=== PATIENT | male | born 1955 ===

== ENCOUNTER 2017-12-05 10:14 | Emergency (ER) | payer OTHER ==
[2017-12-05 10:44] VITALS: O2SAT 99
--- NOTE | 2017-12-05 10:50 | C.PDOC ---
History Of Present Illness 62 ashtyn old male presents to the emergency department with complaints of recurrent urinary retention persisting since last night. Patient reports that the last time he experienced similar symptoms was in 2012. He reports that he gets periodic checks on his PSA, and that he has been taking some unknown prostate medications. He reports that he has a urologist located in [place]. Time Seen by Provider: 12/05/17 10:26 Chief Complaint (Nursing): Male Genitourinary History Per: Patient History/Exam Limitations: no limitations Onset/Duration Of Symptoms: Days (1) Current Symptoms Are (Timing): Still Present Associated Symptoms: Urinary Symptoms Past Medical History Reviewed: Historical Data, Nursing Documentation, Vital Signs Vital Signs: Last Vital Signs Temp 98.9 F 12/05/17 10:26 Pulse 98 H 12/05/17 10:26 Resp 20 12/05/17 10:26 BP 150/83 12/05/17 10:33 Pulse Ox 99 12/05/17 11:00 - Medical History PMH: Benign Prostatic Hyperplasia, HTN, Hypercholesterolemia Surgical History: No Surg Hx Family History: States: No Known Family Hx - Social History Hx Alcohol Use: Yes Hx Substance Use: No - Immunization History Hx Tetanus Toxoid Vaccination: No Hx Influenza Vaccination: Yes Hx Pneumococcal Vaccination: No Review Of Systems Except As Marked, All Systems Reviewed And Found Negative. Constitutional: Negative for: Fever, Chills Respiratory: Negative for: Cough, Shortness of Breath Gastrointestinal: Negative for: Nausea, Vomiting, Abdominal Pain Genitourinary: Positive for: Other (urinary retention) Physical Exam - Physical Exam Appears: Non-toxic, No Acute Distress (comfortable) Skin: Warm, Dry Head: Atraumatic Eye(s): bilateral: Normal Inspection Nose: Normal Neck: Normal, Supple Chest: Symmetrical Cardiovascular: Rhythm Irregular Respiratory: Normal Breath Sounds Gastrointestinal/Abdominal: Normal Exam, Soft, No Tenderness, No Guarding, No Rebound Male Genital: Other (blackburn catheter in place, urine draining without difficulty) Neurological/Psych: Oriented x3, Normal Speech, Normal Cognition ED Course And Treatment O2 Sat by Pulse Oximetry: 99 (RA) Pulse Ox Interpretation: Normal Progress Note: Plan: Blackburn Catheter inserted by nurse. Disposition Counseled Patient/Family Regarding: Diagnosis, Need For Followup - Disposition Referrals: YOUR,UROLOGIST [Other] Disposition: HOME/ ROUTINE Disposition Time: 11:10 Condition: IMPROVED Prescriptions: Ciprofloxacin [Cipro] 1 tab PO BID #14 tab Instructions: Urinary Retention (DC), How to Care for Your Blackburn Catheter, Male Forms: [facility] ([place]) - Clinical Impression Clinical Impression: Urinary retention - Scribe Statement The provider has reviewed the documentation as recorded by the Scribe (Tristan Marvin) Provider Attestation: All medical record entries made by the Scribe were at my direction and personally dictated by me. I have reviewed the chart and agree that the record accurately reflects my personal performance of the history, physical exam, medical decision making, and the department course for this patient. I have also personally directed, reviewed, and agree with the discharge instructions and disposition.
[2017-12-05 12:06] VITALS: BP 145/89; PULSE 97; RESP 18; TEMP 98.7
== END 2017-12-05 11:31 | disposition home or self-care (01) ==
LOC: C.ER 10:14
DX: N40.1 Benign prostatic hyperplasia with lower urinary tract symptoms (principal); R33.8 Other retention of urine